=== PATIENT | male | born 1970 | race Caucasian/White ===

== ENCOUNTER → 2016-11-30 | Outpatient (CLI) | payer BC ==
[~2016-11-30] MED LIST: PRLSRUNK
--- NOTE | 2016-11-30 11:40 | DIAGNOSTIC IMAGING REPORT ---
CHEST 2 VIEWS ROUTINE CLINICAL HISTORY: Cough. Chest tightness. COMPARISON STUDY: Chest radiograph January 16, 2008. FINDINGS: Lung volumes are normal. There is no consolidation to suggest pneumonia. Cardiac size is normal. Mediastinal contours are normal. Pulmonary vascularity is normal. There is no pneumothorax or pleural effusion. IMPRESSION: No acute cardiopulmonary findings. Electronically signed by: Ramone Mercedes M.D. 11/30/2016 11:39 AM Dictated Date/Time: 11/30/2016 11:38 AM
== END | disposition home or self-care (01) ==
LOC: C.RAD 10:59
DX: R05 Cough (principal)

== ENCOUNTER → 2017-08-22 | Outpatient (CLI) | payer BC ==
[2017-08-22 16:55] LABS: BASO % 0.4 %; BASO ABS # 0.03 K/uL (0-0.2); EOS % 4.2 %; EOS ABS # 0.33 K/uL (0-0.5); HEMATOCRIT 43.2 % (42-52); IG# 0.06 K/uL (0.00-0.02); LYMPH % 38.8 %; LYMPH ABS # 3.08 K/uL (1.2-3.4); MEAN CELL VOLUME 86.6 fL (80-100); MEAN CORPUSCULAR HEMOGLOBIN 30.1 pg (25-34); MEAN CORPUSCULAR HGB CONC 34.7 g/dl (32-36); MEAN PLATELET VOLUME 9.6 fL (7.4-10.4); MONO % 6.8 %; MONO ABS # 0.54 K/uL (0.11-0.59); PLATELET COUNT 193 K/uL (130-400); RED CELL DISTRIBUTION WIDTH CV 12.9 % (11.5-14.5); WHITE BLOOD COUNT 7.94 K/uL (4.8-10.8)
[2017-08-22 17:19] LABS: ALT/SGPT 32 U/L (12-78); AST/SGOT 21 U/L (15-37); BLOOD UREA NITROGEN 20 mg/dl (7-18); CALCIUM 8.8 mg/dl (8.5-10.1); CARBON DIOXIDE 27 mmol/L (21-32); CREATININE 1.14 mg/dl (0.60-1.40); GLUCOSE 115 mg/dl (70-99); POTASSIUM 3.8 mmol/L (3.5-5.1); SODIUM 136 mmol/L (136-145)
[2017-08-22 17:30] LABS: ALKALINE PHOSPHATASE 77 U/L (45-117); TOTAL PROTEIN 7.9 gm/dl (6.4-8.2)
[2017-08-24 14:32] LABS: ANA SCREEN TC 249X NEGATIVE (NEGATIVE)
== END | disposition home or self-care (01) ==
LOC: C.LAB1850 16:02
DX: R42 Dizziness and giddiness (principal)

== ENCOUNTER → 2017-11-15 | Outpatient (CLI) | payer BC ==
[2017-11-15 09:34] LABS: HEMATOCRIT 45.3 % (42-52); MEAN CELL VOLUME 85.8 fL (80-100); MEAN CORPUSCULAR HEMOGLOBIN 30.3 pg (25-34); MEAN CORPUSCULAR HGB CONC 35.3 g/dl (32-36); MEAN PLATELET VOLUME 9.2 fL (7.4-10.4); PLATELET COUNT 219 K/uL (130-400); RED CELL DISTRIBUTION WIDTH CV 12.8 % (11.5-14.5); RED CELL DISTRIBUTION WIDTH SD 40.1 fL (36.4-46.3); WHITE BLOOD COUNT 7.71 K/uL (4.8-10.8)
[2017-11-15 10:04] LABS: BLOOD UREA NITROGEN 14 mg/dl (7-18); CALCIUM 8.9 mg/dl (8.5-10.1); CARBON DIOXIDE 29 mmol/L (21-32); CHOLESTEROL 141 mg/dl (0-200); CREATININE 1.03 mg/dl (0.60-1.40); GLUCOSE 94 mg/dl (70-99); POTASSIUM 3.8 mmol/L (3.5-5.1); SODIUM 139 mmol/L (136-145)
[2017-11-15 10:14] LABS: LDL CHOLESTEROL CALCULATED 63 mg/dl
== END | disposition home or self-care (01) ==
LOC: C.LAB1850 07:07
DX: Z13.220 Encounter for screening for lipoid disorders (principal); I10 Essential (primary) hypertension

== ENCOUNTER 2024-09-27 08:41 | Inpatient (IN) ==
--- NOTE | 2024-09-17 10:35 | Anesthesiology Consultation ---
Date of Service September 17, 2024 Assessment & Plan (1) Encounter for pre-operative examination: Infectious disease screening: Per assessment on 09/17/24- No known recent infectious disease contacts or current infectious disease symptoms. Chart Review Chart Review: Acceptable Risk for Surgery and Patient NOT seen in Pre Admission Testing History Surgery Operation Date: 09/27/24 07:15 Proposed Procedures p Laparoscopic Partial Small Bowel Resection - Sebas Mobley, DO Height/Weight Height: 6 ft Weight: 103.873 kg Allergies Allergy/AdvReac Type Severity Reaction Status Date / Time eggs AdvReac esophageal Uncoded 09/17/24 10:10 spasms Medications Home Medications Medication Instructions Recorded Confirmed Last Taken famotidine 40 mg tablet 40 mg PO QAM 11/30/23 09/17/24 Unknown metoprolol succinate 25 mg 25 mg PO QAM 11/30/23 09/17/24 Unknown tablet,extended release 24 hr tamsulosin 0.4 mg capsule 0.4 mg PO QAM 09/17/24 09/17/24 Unknown Past Medical History Medical History Hx of gastroesophageal reflux (GERD) Hx of renal calculi no sx Hypertension Mesenteric mass Obesity (BMI 30-39.9) Past Family History Family History Grandfather (Maternal) Myocardial infarction Heart disease Grandmother (Maternal) Diabetes Past Surgical History Surgical History H/O wisdom tooth extraction Hx of colonoscopy Hx of sinus surgery stitches in sinus on left side, as a teen S/P knee surgery R/L, both arthroscopic Social History Smoking Status: Never smoker Do You Dip or Chew Tobacco: No Hx Alcohol Use: Yes Alcohol type: beer alcohol intake frequency: holidays/special occasions only Hx Substance Use: No substance use type: does not use Lab Results Anesthesia Preop Results Results Anesthesia Widget: WBC 6.92 K/ul (4.8-10.8) 08/22/24 Hgb 14.8 g/dl (14.0-18.0) 08/22/24 Hct 43.8 % (42.0-52.0) 08/22/24 Plt 215 K/uL (130-400) 08/22/24 Na 138 mmol/L (136-145) 08/22/24 K 4.3 mmol/L (3.5-5.1) 08/22/24 Cl 106 mmol/L (98-107) 08/22/24 CO2 26 mmol/L (21-32) 08/22/24 BUN 19 mg/dl (6-23) 08/22/24 Creat 1.11 mg/dl (0.6-1.4) 08/22/24 Glucose Level 105 mg/dl (70-99(Fasting)) H 08/22/24 Testing Electrocardiogram Date: 08/22/24 Findings: + NSR @ (63) Other Testing PET Skill-mid thigh Date: 09/06/24 FINDINGS: There is physiologic uptake. Head and neck: No enlarged adenopathy or abnormal uptake seen. Chest: There is no pulmonary consolidation or pleural effusion. No significant pulmonary nodule. No enlarged or hypermetabolic adenopathy. Abdomen and Pelvis: The 1.8 cm anterior mesenteric mass near the midline series 4 image 179 demonstrates maximum SUV of 3.2, similar to adjacent bowel. No other abnormal uptake seen. Liver, gallbladder, spleen, pancreas, adrenal glands, and kidneys have an unremarkable non-IV contrasted appearance. No abdominal aortic aneurysm. Urinary bladder is decompressed. Prostate is mildly enlarged. No bowel inflammation or obstruction. No free fluid, free air, or abscess. No enlarged adenopathy. Musculoskeletal: No abnormal uptake seen. IMPRESSION: Small mesenteric mass demonstrates mild uptake, similar to adjacent bowel. This suggests low-grade carcinoid tumor. No other abnormal uptake seen. Continued follow-up is recommended.
--- NOTE | 2024-09-27 07:13 | History & Physical Report ---
Date of Service September 27, 2024 Assessment & Plan (1) Mesenteric mass: Plan Small bowel mesenteric mass. While his urine and blood 5 HIAA were elevated I did review the PET scan with Dr. Mercedes and there does not appear to be any additional areas of involvement. Discussed options as well as risks. Will proceed today with a laparoscopic partial small bowel resection. History of Present Illness Primary Care Provider: Chica Gallo is here for a laparoscopic partial small bowel resection for a small bowel mesenteric mass. 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 There has been no major changes to his health history since I seen him last in the office. Allergies Allergy/AdvReac Type Severity Reaction Status Date / Time egg AdvReac ESOPHAGEAL Verified 09/27/24 09:18 SPASMS Home Medications Medication Instructions Recorded Confirmed Type famotidine 40 mg tablet 40 mg PO QAM 11/30/23 09/27/24 History metoprolol succinate 25 mg 25 mg PO QAM 11/30/23 09/27/24 History tablet,extended release 24 hr tamsulosin 0.4 mg capsule 0.4 mg PO QAM 09/17/24 09/27/24 History Past Med/Surg History Problem List (Updated 09/27/24 @ 11:00 by Sebas Mobley, ) Mesenteric mass Encounter for pre-operative examination Medical History Hx of gastroesophageal reflux (GERD) Hx of renal calculi no sx Hypertension Mesenteric mass Obesity (BMI 30-39.9) Surgical History H/O wisdom tooth extraction Hx of colonoscopy Hx of sinus surgery stitches in sinus on left side, as a teen S/P knee surgery R/L, both arthroscopic Family History Grandfather (Maternal) Myocardial infarction Heart disease Grandmother (Maternal) Diabetes Social History Smoking Status: Never smoker Second Hand Exposure: Yes (hx growing up); Do You Dip or Chew Tobacco: No; Tobacco Cessation Education Requested by Patient: No Hx Alcohol Use: Yes Alcohol type: beer Alcohol Intake Frequency: 2-4 x/Month Hx Substance Use: No Preferred Language: Welsh Communication Ability: Effective Tile Fitter Required: No Beliefs That Will Affect Care: None marital status: Current Living Situation: Spouse current occupational status: employed Other Information That Helps Us Care for You: No Feels Safe at Home: Yes Safety Concerns: Feels Safe At This Time Diet: regular during the past year weight has: increased > 10 lbs Assistive Devices: None Review of Systems All systems reviewed & are unremarkable except as noted in HPI & below Physical Exam Constitutional: WD/WN, vitals as above no acute distress and not ill appearing Eyes: PERRL, conjunctivae normal, anicteric sclerae EOM intact bilaterally ENMT: external ear and nose normal, oropharynx normal Ears: no hearing impairment Neck: trachea midline, no thyromegaly Respiratory: normal respiratory effort; no respiratory distress and does not use accessory muscles Cardiovascular: Rate/Rhythm: regular rate and regular rhythm Gastrointestinal (Abdomen): normal bowel sounds, soft, nontender, no hepatosplenomegaly Skin: no rashes, warm and dry Psychiatric: Orientation: alert, oriented x 3 and cooperative
[2024-09-27] MEDS: LR 15ML/HR IV SCH (09:45)
[2024-09-27] MEDS ORDERED: ONDANSETRON INJ 2 MG/ML 2 ML VIAL ONE (09:49)
[2024-09-27] MEDS ORDERED: fentaNYL citrate PF 100 MCG/2 ML VIAL ONE (09:49)
[2024-09-27] MEDS ORDERED: ROCURONIUM BROMIDE 10 MG/ML 5 ML VIAL IV ONE ×2 (09:49→12:36)
[2024-09-27] MEDS ORDERED: GLYCOPYRROLATE 0.2 MG/ML VIAL ONE ×4 (09:49→13:15)
[2024-09-27] MEDS ORDERED: LIDOCAINE 2% 2 ML VIAL/AMP(20MG/ML) INFIL ONE ×2 (09:49)
[2024-09-27] MEDS ORDERED: DEXAMETHASONE SOD INJ 4 MG/ML VIAL ONE (09:49)
[2024-09-27] MEDS ORDERED: PROPOFOL IV EMULSION 10 MG/ML 20 ML VIAL IV ONE (09:49)
[2024-09-27] MEDS ORDERED: MIDAZOLAM HCL 1 MG/ML 2ML VIAL ONE (09:49)
[2024-09-27] MEDS: ceFAZolin 2000MG 2,000 MG/15 ML SYR IV SCH ×2 (11:57→19:27)
[2024-09-27] MEDS ORDERED: ePHEDrine sulfate 50 MG/5 ML SYR ONE (12:27)
[2024-09-27] MEDS ORDERED: HYDROmorphone INJ 2 MG/ML SYR/VIAL ONE (12:45)
[2024-09-27] MEDS ORDERED: KETOROLAC 30 MG/ML VIAL ONE (12:50)
[2024-09-27] MEDS ORDERED: NEOSTIGMINE METHYLSULFATE 1 MG/ML 10ML VIAL ONE (13:15)
[2024-09-27] MEDS: BUPIVACAINE/EPINEPHRINE 0.5% MPF 1:200,000 30 ML VIAL ONE (13:40)
--- NOTE | 2024-09-27 14:03 | Operative Report ---
PG Post Operative Report Pre & Post Diagnosis Operation Date: 09/27/24 10:35 Pre-Op Diagnosis: Mesentric Mass Post-Op Diagnosis: Mesentric Mass I identified the patient and participated in the time-out.: Yes Procedure Operation Date: 09/27/24 10:35 Actual Procedures p Laparoscopic converted to open Partial Small Bowel Resection(Not Applicable) - Sebas Mobley DO Surgeon Sebas Mobley DO Legal Office Administrator tulio Huggins Estimated Blood Loss 20 Findings Consistent with Post-Op Diagnosis Specimens 1. portion of small bowel and mesentery 2. additional proximal small bowel and mesentery 3. additional distal small bowel and mesentery Description of Procedure Informed consent was obtained the patient was taken to the operating room and placed in supine position. After successful intubation the abdomen was shaved and sterilely prepped and draped in usual fashion. I began with a supraumbilical incision with 11 blade scalpel. This was carried down through the soft tissue using cautery. The anterior fascia was opened using cautery and two #0 Vicryl stay sutures were placed. Peritoneum was entered using blunt finger penetration and a finger sweep was performed to take down any underlying adhesions. A 12 mm Ulloa trocar was placed and the abdomen was insufflated to 18 mmHg. Laparoscope was inserted and the abdomen was examined 360 degrees. All the peritoneal surfaces were normal including liver. There was no evidence of any omental abnormalities. Next I placed a left upper quadrant 5 mm trocar and a left mid abdominal 5 mm trocar. I began by identifying the ligament of Treitz. I ran the small bowel distally and at about the midpoint of the small bowel I encountered a firm area of contracted mesentery. This was clearly the abnormality seen on imaging. I did continue to run the small bowel distally to the ileocecal valve and there were no other abnormal areas. At this point I grasped the bowel with a clamp and we removed the trocars. I extended the umbilical incision superiorly as well as for several centimeters inferiorly. We opened the fascia. I was able to deliver the small bowel and mesentery and exteriorized it. Several inches distal to the mass I transected the small bowel using a DMITRY brown cartridge linear stapler. In similar fashion I transected the small bowel proximal. We then used a LigaSure device to come down the mesentery. I stayed as low as possible since the mass itself was in the mesentery. I transected the mesentery low at its base. We then sent the small bowel and mesentery to the pathology lab. Once I did this the stapled ends of both the proximal and small bowel were slightly dusky. I decided that it would be helpful to incorporate some additional mesentery as well so I used DMITRY brown cartridge staplers to transect an extra couple centimeters of the proximal as well as distal small bowel using a LigaSure to take the mesentery and included them as additional proximal small bowel mesentery and an additional distal small bowel and mesentery. Next we performed a [id number] small bowel anastomosis. Enterotomies were made and a DMITRY August cartridge linear stapler 60 mm was used to create a [id number] anastomosis. I closed the common enterotomy using 3-0 Monocryl in running fashion for serosal/mucosal layers followed by 3-0 silk in Lembert fashion at the suture line with individual silk sutures. Next we changed our gloves. 3-0 silk was used to place a crotch stitch. 2-0 Vicryl was used to close the mesenteric defect. The anastomosis was widely patent with no evidence of any ischemia. This was reduced back into the abdomen. We did run the small bowel manually 1 additional time and again no other abnormalities were seen. The fascia was closed using #1 looped PDS in running fashion. Soft tissue was irrigated. Skin was closed over quarter inch Ashley with skin lindsay. Silver dressing was used to cover the incisions followed by gauze and tape. The patient was awakened extubated and transferred to recovery in stable condition. My physician human resources assistant manager was present through the entire case was instrumental in assisting with running the camera, assisting with this bowel resection anastomosis wound closure and dressing placement. I attest to the content of the Intraoperative Record and any orders documented therein. Any exceptions are noted below.
[2024-09-27] MEDS: HYDROmorphone INJ 1 MG/ML SYRINGE IV PRN (14:05)
[2024-09-27] MEDS ORDERED: ATROPINE SULFATE 0.1 MG/ML 10ML SYR IV PRN (14:08)
[2024-09-27] MEDS ORDERED: ePHEDrine sulfate 50 MG/ML AMP IV PRN (14:08)
[2024-09-27] MEDS ORDERED: fentaNYL citrate PF 100 MCG/2 ML VIAL IV PRN (14:08)
[2024-09-27] MEDS ORDERED: FLUMAZENIL 0.1 MG/1 ML 10 ML VIAL IV PRN (14:08)
[2024-09-27] MEDS ORDERED: NALOXONE HCL 0.4 MG/1 ML VIAL/CARP IV PRN (14:08)
[2024-09-27] MEDS ORDERED: PROMETHAZINE HCL 6.25 MG in SODIUM CHLORIDE 0.9% 50 ML IV PRN (14:08)
[2024-09-27] MEDS: ONDANSETRON INJ 2 MG/ML 2 ML VIAL IV PRN (14:30)
--- NOTE | 2024-09-27 14:48 | Anesthesiology Progress Note ---
Date of Service September 27, 2024 Anesthesia Post Procedure Vital Signs Vital Signs: Temp Pulse Resp BP BP Pulse Ox O2 Del Method 09/27/24 14:35 58 L 15 128/86 96 Nasal Cannula 09/27/24 14:25 36.4 C L 58 L 15 113/72 95 Nasal Cannula 09/27/24 14:15 59 L 15 128/74 98 Oxymask 09/27/24 14:05 58 L 15 126/69 99 Oxymask 09/27/24 13:55 36.2 C L 70 18 133/75 98 Oxymask 09/27/24 09:19 37.1 C 75 18 158/91 H 99 Room Air O2 Flow Rate 09/27/24 14:35 2 09/27/24 14:25 2 09/27/24 14:15 5 09/27/24 14:05 5 09/27/24 13:55 5 09/27/24 09:19 Transfer of Care Handoff Completed per policy Notes Mental Status: alert / awake / arousable Patient Amnestic to Procedure: Yes Nausea / Vomiting: adequately controlled Pain: adequately controlled Airway Patency, RR, SpO2: stable & adequate BP & HR: stable & adequate Hydration State: stable & adequate Anesthetic Complications: no major complications apparent
[2024-09-27] MEDS ORDERED: MoRPHine SULFATE 2 MG/ML CARP IV PRN (15:05)
[2024-09-27] MEDS ORDERED: oxyCODONE HCL IR 5 MG TAB (IMMEDIATE RELEASE) PO PRN ×2 (15:05)
[2024-09-27] MEDS ORDERED: ONDANSETRON INJ 2 MG/ML 2 ML VIAL IV PRN (15:05)
[2024-09-27] MEDS ORDERED: MoRPHine SULFATE 4 MG/ML 1 ML CARP\\VIAL IV PRN (15:05)
[2024-09-27] MEDS: HYDROmorphone INJ 1 MG/ML SYRINGE ONE (15:08)
[2024-09-27] MEDS: LACTATED RINGER'S 1,000 ML IV SCH (15:20)
[2024-09-28 06:12] LABS: Basophils # (auto) 0.01 K/uL (0.00-0.20); Basophils % (auto) 0.1 %; Eosinophils # (auto) 0.01 K/uL (0.00-0.50); Eosinophils % (auto) 0.1 %; Hematocrit (blood only) 39.3 % (42.0-52.0); Hemoglobin 13.3 g/dl (14.0-18.0); Immature Granulocytes # (auto) 0.08 K/uL (0.01-0.20); Immature Granulocytes % (auto) 0.6 %; Lymphocytes % (auto) 10.8 %; Mean Corpuscular Hemoglobin 29.8 pg (25.0-34.0); Mean Corpuscular Hgb Conc 33.8 g/dL (32.0-36.0); Mean Corpuscular Volume 87.9 fL (80.0-100.0); Mean Platelet Volume 9.3 fL (9.4-12.4); Monocytes # (auto) 1.07 K/uL (0.11-0.59); Monocytes % (auto) 7.7 %; Neutrophils # (auto) 11.17 K/uL (1.40-6.50); Neutrophils % (auto) 80.7 %; Platelet Count 214 K/uL (130-400); RDW Coefficient of Variation 12.8 % (11.5-14.5); Red Blood Count 4.47 M/uL (4.70-6.10); White Blood Count 13.84 K/ul (4.8-10.8)
[2024-09-28 06:25] LABS: BUN Creatinine Ratio 13.2 (10-20); Calcium 8.8 mg/dl (8.6-10.3); Creatinine Clr Calc Pharmacy 114.7 ml/min; Potassium 3.9 mmol/L (3.5-5.1)
[2024-09-28] MEDS: ACETAMINOPHEN 325 MG TAB PO PRN (07:38)
--- NOTE | 2024-09-28 08:39 | Surgery Progress Note ---
Date of Service September 28, 2024 Assessment & Plan (1) Mesenteric mass: Plan: Patient with a history of mesenteric mass who is now POD#1 s/p laparoscopic converted to open Partial Small Bowel Resection with Dr. Mobley -Will keep on clears for now, if patient continues to do well this morning will advance to fulls later today. -Continue to monitor bowel function, patient is passing small amount of gas however no BM. -Continue 24 hour post-op antibiotics, patient does have slight WBC elevation today however he has been afebrile. WBC could be secondary to recent surgery. Will continue to trend daily labs. -Patient already has been up ambulating post-op, encourage OOB throughout the day -Pain control as needed -Will keep surgical dressing in place today, will change dressing tomorrow AM. Admission and Anticipated Discharge Date Admission Date: September 27, 2024 Subjective Patient doing well this morning, no acute complaints at this time Tolerating clears without any issues of nausea or vomiting Passing some gas, however no BM Pain well controlled and patient has been up ambulating last evening and this morning WBC slightly elevated today however patient has remained afebrile. On 24 hour post-op abx. Physical Exam Constitutional: WD/WN, vitals as above Respiratory: normal respiratory effort, lungs clear to auscultation Cardiovascular: RRR, no murmur, no edema Gastrointestinal (Abdomen): Abdomen soft, nondistended, +appropriate TTP over surgical sites. +surgical sites with dressing in place, c/d/i without any overlying signs of infection. Skin: no rashes, warm and dry Psychiatric: A+Ox3, euthymic affect Results & Data Vital Signs (Past 12 Hours) Vital Signs Temp Pulse Pulse Resp BP BP Pulse Ox 09/28/24 08:00 36.6 C 72 18 146/76 H 96 09/28/24 07:10 36.7 C 67 17 151/82 H 94 09/28/24 03:57 36.9 C 57 L 18 127/74 97 09/27/24 23:38 36.9 C 63 18 120/74 94 O2 Del Method 09/28/24 08:00 Room Air 09/28/24 07:10 Room Air 09/28/24 03:57 Room Air 09/27/24 23:38 Room Air PG Care Time/CCT Total # of Minutes Spent Total Time Spent with Patient: Total time spent is greater than 50% in coordination of care (as documented) at patient's floor/unit and/or counseling patient: C[place] [address] Post Operative Follow-Up Patient Type Established History Problem Focused Exam Problem Focused Medical Decision Making Straight Forward Diagnoses Mesenteric mass K63.89
[2024-09-28] MEDS: FAMOTIDINE 40 MG TABLET PO SCH (09:00)
[2024-09-28] MEDS: TAMSULOSIN HCL 0.4 MG CAP PO SCH (09:00)
[2024-09-28] MEDS: METOPROLOL SUCC 25MG EXT REL TAB PO SCH (09:00)
--- NOTE | 2024-09-29 04:38 | Surgery Progress Note ---
Date of Service September 29, 2024 Assessment & Plan (1) Mesenteric mass: Plan: Patient is status post partial small bowel resection on 09/27/2024 (postop day #2) Surgical path is pending Continue analgesics as needed As patient has not had return of bowel function we will keep on current diet which is full liquids for the present time. Consideration be given to advancing diet once he has improved bowel function Continue mobilization Check a.m. labs when available If patient remains hospitalized today, consider adding subcutaneous heparin for DVT prophylaxis Admission and Anticipated Discharge Date Admission Date: September 27, 2024 Supervising Physician Co-Signing Physician Notes Patient seen and examined, labs reviewed, agree with above. POD #2 laparoscopic converted to open small bowel resection for mesenteric mass with primary anastomosis. He is tolerating full liquids, though he does have some belching. He has not passed flatus or pass gas but does not have any significant discomfort or feel distended. Some mild pain around incision site. Abdomen soft, probably tender to palpation. Dressing in place without strikethrough. Torsten without infection. Horatio present. Labs unremarkable. Will continue on full liquid diet until more meaningful return of bowel function. Once he starts passing gas and having a bowel movement, we will advance to a low fiber diet and he will be able to be discharged to home. Subjective Patient is resting comfortably in bed. He notes that his abdominal pain from surgery is well-controlled. He did report some bloating yesterday but this has improved. He has not had any return of bowel function since his surgery but he does not have any nausea or vomiting and is tolerating full liquids. He is urinating without difficulty and has been ambulating in the hallways Physical Exam Gastrointestinal (Abdomen): Abdomen is soft with minimal distention. Incision is clean, dry, intact with Ashley drain in place. There is minimal pain with palpation Results & Data Vital Signs (Past 12 Hours) Vital Signs Temp Pulse Resp BP BP Pulse Ox O2 Del Method 09/28/24 23:55 37 C 56 L 14 156/92 H 98 Room Air 09/28/24 22:07 36.9 C 155/92 H 09/28/24 20:15 173/100 H 09/28/24 20:14 37.3 C 60 12 166/95 H 98 Room Air PG Care Time/CCT Total # of Minutes Spent Total Time Spent with Patient: Total time spent is greater than 50% in coordination of care (as documented) at patient's floor/unit and/or counseling patient: Coding Level of Care Code 09022 Post Operative Follow-Up Diagnoses Mesenteric mass K63.89
[2024-09-29 06:29] LABS: Basophils # (auto) 0.04 K/uL (0.00-0.20); Basophils % (auto) 0.4 %; Eosinophils # (auto) 0.11 K/uL (0.00-0.50); Eosinophils % (auto) 1.2 %; Hemoglobin 13.1 g/dl (14.0-18.0); Immature Granulocytes # (auto) 0.04 K/uL (0.01-0.20); Immature Granulocytes % (auto) 0.4 %; Lymphocytes # (auto) 2.37 K/uL (1.20-3.40); Lymphocytes % (auto) 25.1 %; Mean Corpuscular Hemoglobin 30.2 pg (25.0-34.0); Mean Corpuscular Hgb Conc 34.5 g/dL (32.0-36.0); Mean Corpuscular Volume 87.6 fL (80.0-100.0); Mean Platelet Volume 9.4 fL (9.4-12.4); Monocytes # (auto) 0.88 K/uL (0.11-0.59); Monocytes % (auto) 9.3 %; Neutrophils # (auto) 6.01 K/uL (1.40-6.50); Neutrophils % (auto) 63.6 %; Platelet Count 200 K/uL (130-400); RDW Coefficient of Variation 12.9 % (11.5-14.5); RDW Standard Deviation 41.3 fL (36.4-46.3); Red Blood Count 4.34 M/uL (4.70-6.10); White Blood Count 9.45 K/ul (4.8-10.8)
[2024-09-29 07:45] LABS: BUN Creatinine Ratio 10.1 (10-20); Calcium 8.6 mg/dl (8.6-10.3); Creatinine Clr Calc Pharmacy 104.2 ml/min
[2024-09-30 06:26] LABS: Basophils # (auto) 0.06 K/uL (0.00-0.20); Basophils % (auto) 0.7 %; Eosinophils # (auto) 0.19 K/uL (0.00-0.50); Eosinophils % (auto) 2.3 %; Hematocrit (blood only) 39.3 % (42.0-52.0); Hemoglobin 13.4 g/dl (14.0-18.0); Immature Granulocytes # (auto) 0.04 K/uL (0.01-0.20); Immature Granulocytes % (auto) 0.5 %; Lymphocytes # (auto) 2.34 K/uL (1.20-3.40); Lymphocytes % (auto) 27.8 %; Mean Corpuscular Hemoglobin 29.6 pg (25.0-34.0); Mean Corpuscular Hgb Conc 34.1 g/dL (32.0-36.0); Mean Corpuscular Volume 86.8 fL (80.0-100.0); Monocytes # (auto) 0.86 K/uL (0.11-0.59); Monocytes % (auto) 10.2 %; Neutrophils # (auto) 4.93 K/uL (1.40-6.50); Neutrophils % (auto) 58.5 %; Platelet Count 202 K/uL (130-400); RDW Coefficient of Variation 12.7 % (11.5-14.5); RDW Standard Deviation 40.6 fL (36.4-46.3); Red Blood Count 4.53 M/uL (4.70-6.10); White Blood Count 8.42 K/ul (4.8-10.8)
[2024-09-30 06:44] LABS: BUN Creatinine Ratio 7.9 (10-20); Calcium 8.9 mg/dl (8.6-10.3); Creatinine Clr Calc Pharmacy 102.1 ml/min; Potassium 3.9 mmol/L (3.5-5.1)
--- NOTE | 2024-09-30 08:39 | Surgery Progress Note ---
Date of Service September 30, 2024 Assessment & Plan (1) Hx of resection of small bowel: Plan: POD #3 bowel resection with anastomosis for mesenteric mass. Did pass some flatus Continue full liquids, will advance to low fiber if he has a more meaningful return of bowel function Discharge once tolerating a low fiber diet Admission and Anticipated Discharge Date Admission Date: September 27, 2024 Subjective POD #3 small bowel resection with anastomosis for mesenteric mass. Did pass some flatus overnight, but still feels a little bloated. Physical Exam Constitutional: WD/WN, vitals as above Gastrointestinal (Abdomen): normal bowel sounds, soft, nontender, no hepatosplenomegaly Inspection/Auscultation: + abdomen distended (Mild) and + abdominal surgical incision (No infection, Ashley in place) Results & Data Vital Signs (Past 12 Hours) Vital Signs Temp Pulse Resp BP Pulse Ox O2 Del Method 09/30/24 08:21 37.2 C 92 H 16 152/101 H 95 Room Air Laboratory Results Laboratory Results - last 24 hr 09/30/24 06:01 WBC 8.42 RBC 4.53 L Hgb 13.4 L Hct 39.3 L MCV 86.8 MCH 29.6 MCHC 34.1 RDW Std Deviation 40.6 RDW Coeff of Sammy 12.7 Plt Count 202 MPV 9.0 L Immature Gran % (Auto) 0.5 Neut % (Auto) 58.5 Lymph % (Auto) 27.8 Garza % (Auto) 10.2 Eos % (Auto) 2.3 Baso % (Auto) 0.7 Neut # (Auto) 4.93 Lymph # (Auto) 2.34 Garza # (Auto) 0.86 H Eos # (Auto) 0.19 Baso # (Auto) 0.06 Immature Gran # (Auto) 0.04 Sodium 141 Potassium 3.9 Chloride 105 Carbon Dioxide 31 Anion Gap 5 BUN 8 Creatinine 1.01 Est Cr Clr Drug Dosing 102.1 eGFR 87.28 BUN/Creatinine Ratio 7.9 L Glucose 107 H Calcium 8.9 PG Care Time/CCT Total # of Minutes Spent Total Time Spent with Patient: Total time spent is greater than 50% in coordination of care (as documented) at patient's floor/unit and/or counseling patient: Coding Level of Care Code 51771 Post Operative Follow-Up Diagnoses Hx of resection of small bowel Z90.49
[2024-10-01 06:13] LABS: Basophils # (auto) 0.05 K/uL (0.00-0.20); Basophils % (auto) 0.5 %; Eosinophils # (auto) 0.19 K/uL (0.00-0.50); Eosinophils % (auto) 2.1 %; Hematocrit (blood only) 40.3 % (42.0-52.0); Hemoglobin 13.7 g/dl (14.0-18.0); Immature Granulocytes # (auto) 0.05 K/uL (0.01-0.20); Immature Granulocytes % (auto) 0.5 %; Lymphocytes % (auto) 24.9 %; Mean Corpuscular Hemoglobin 29.1 pg (25.0-34.0); Mean Corpuscular Volume 85.6 fL (80.0-100.0); Mean Platelet Volume 9.3 fL (9.4-12.4); Monocytes # (auto) 0.79 K/uL (0.11-0.59); Monocytes % (auto) 8.6 %; Neutrophils # (auto) 5.84 K/uL (1.40-6.50); Neutrophils % (auto) 63.4 %; Platelet Count 217 K/uL (130-400); RDW Coefficient of Variation 12.5 % (11.5-14.5); RDW Standard Deviation 38.5 fL (36.4-46.3); Red Blood Count 4.71 M/uL (4.70-6.10); White Blood Count 9.22 K/ul (4.8-10.8)
[2024-10-01 07:54] VITALS: RESP 16; O2SAT 95
--- NOTE | 2024-10-01 10:54 | Surgery Progress Note ---
Date of Service October 01, 2024 Assessment & Plan (1) Hx of resection of small bowel: Plan: POD 4 small bowel resection VSS with hypertension 144/92 on home metoprolol dose, pt asymptomatic, discussed op fu with PCP WBC 9.2 +BMs + flatus no n/v on fulls will advance to low fiber tari drain removed, lindsay CDI , no s/s infection noted drsg changed if tolerates low fiber lunch may be d/c home this evening f/u op in office with Dr Mobley 1-2 weeks continue low fiber diet all questions answered. Admission and Anticipated Discharge Date Admission Date: September 27, 2024 Supervising Physician Co-Signing Physician Notes Patient seen and examined, labs reviewed, agree with above. Status post small b owel resection with anastomosis for mesenteric mass by Dr. Mobley last week. He had multiple bowel movements over the past 24 hours and is passing flatus. He feels much better, occasional gas pain. On exam he is afebrile stable vitals, his abdomen is soft, lindsay in place, no infection, [place] removed. WBC normal. DC to home if tolerates lunch, follow-up with Dr. Mobley for staple removal and pathology results in the next week or 2. Wound care instructions, activity restriction, return precautions given. Subjective +flatus +bm denies fever/chills , cp , sob Review of Systems Constitutional: no fever and no chills Eyes: no diplopia Respiratory: no dyspnea Cardiovascular: no chest pain Gastrointestinal: + abdominal pain; no nausea and no vomit ing Genitourinary: no dysuria Psychiatric: no confusion Physical Exam Constitutional: cooperative and comfortable; no acute distress Respiratory: normal respiratory effort; no respiratory distress Cardiovascular: Rate/Rhythm: regular rate Gastrointestinal (Abdomen): Inspection/Auscultation: + abdominal surgical incision and + abdominal surgical drain present; abdomen not distended Percussion/Palpation: abdomen soft Psychiatric: A+Ox3, euthymic affect Results & Data Vital Signs (Past 12 Hours) Vital Signs Temp Pulse Resp BP Pulse Ox O2 Del Method 10/01/24 07:35 99.1 F 63 16 144/92 H 95 Room Air Results CBC w Diff Results: RBC 4.71 M/uL (4.70-6.10) 10/01/24 WBC 9.22 K/ul (4.8-10.8) 10/01/24 Hgb 13.7 g/dl (14.0-18.0) L 10/01/24 Hct 40.3 % (42.0-52.0) L 10/01/24 MCV 85.6 fL (80.0-100.0) 10/01/24 MCH 29.1 pg (25.0-34.0) 10/01/24 MCHC 34.0 g/dL (32.0-36.0) 10/01/24 RDW Standard Deviation 38.5 fL (36.4-46.3) 10/01/24 RDW Coefficient of Variation 12.5 % (11.5-14.5) 10/01/24 Plt Count 217 K/uL (130-400) 10/01/24 MPV 9.3 fL (9.4-12.4) L 10/01/24 Neutrophils (%) (Auto) 63.4 % 10/01/24 Lymphocytes (%) (Auto) 24.9 % 10/01/24 Monocytes # (Auto) 0.79 K/uL (0.11-0.59) H 10/01/24 Eosinophils # (Auto) 0.19 K/uL (0.00-0.50) 10/01/24 Immature Granulocyte % (Auto) 0.5 % 10/01/24 Neutrophils # (Auto) 5.84 K/uL (1.40-6.50) 10/01/24 Lymphocytes # (Auto) 2.30 K/uL (1.20-3.40) 10/01/24 Monocytes # (Auto) 0.79 K/uL (0.11-0.59) H 10/01/24 Eosinophils # (Auto) 0.19 K/uL (0.00-0.50) 10/01/24 Basophils # (Auto) 0.05 K/uL (0.00-0.20) 10/01/24 Immature Granulocyte # (Auto) 0.05 K/uL (0.01-0.20) 5 PG Care Time/CCT Total # of Minutes Spent Total Time Spent with Patient: Total time spent is greater than 50% in coordination of care (as documented) at patient's floor/unit and/or counseling patient: Coding Level of Care Code 30249 Post Operative Follow-Up Diagnoses Hx of resection of small bowel Z90.49
[2024-10-01 11:48] VITALS: BP 150/94; PULSE 68; TEMP 99
--- NOTE | 2024-10-03 08:26 | Coding Query ---
PATHOLOGY To promote full compliance with coding requirements relating to patient care, physician participation is requested in all cases of betting agency manager uncertainty. Please assist us with the question(s) below: Please review the Pathology report and please document any relevant diagnosis(es) below: Diagnosis(es): small bowel desmoid fibromatosis Thank you MASOUD Fraser [facility]
--- NOTE | 2024-10-03 19:17 | Discharge Summary ---
Date of Service October 01, 2024 Admission HPI Per Admitting Provider Sabino is here for a laparoscopic partial small bowel resection for a small bowel mesenteric mass. 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 There has been no major changes to his health history since I seen him last in the office. Principal Diagnosis Mesenteric mass Discharge Exam Constitutional: cooperative and comfortable; no acute distress Respiratory: normal respiratory effort; no respiratory distress Cardiovascular: Rate/Rhythm: regular rate Gastrointestinal (Abdomen): Inspection/Auscultation: + abdominal surgical incision and + abdominal surgical drain present; abdomen not distended Percussion/Palpation: abdomen soft Psychiatric: A+Ox3, euthymic affect Discharge Data Allergies Allergy/AdvReac Type Severity Reaction Status Date / Time egg AdvReac ESOPHAGEAL Verified 09/27/24 09:18 SPASMS Procedures Performed Operation Date: 09/27/24 10:35 Actual Procedures p open Partial Small Bowel Resection(Not Applicable) - Sebas Mobley DO s Laparoscopic converted to open(Not Applicable) - Sebas Mobley DO Hospital Course (1) Mesenteric mass: Patient is a 54-year-old male who underwent laparoscopic, converted to open, partial small bowel resection with Dr. Mobley on 09/27/2024. The patient was admitted under the surgical service post-operatively to medical/surgical floor. Post-operatively, the patient was placed on a clear-liquid diet and he was able to tolerate without any issues. He was gradually advanced to a low-fiber diet once he had full return of bowel function. The patient did receive appropriate 24hour post-op antibiotics and otherwise did not require any additional antibiotic coverage. His pain was well controlled with Extra Strength Tylenol and low-dose Oxycodone. The patient's surgical sites had lindsay and his midline incision also had a [place] drain in place. The Ashley was removed prior to the time of discharge and he had no overlying signs of infection to his surgical sites. He was ultimately found medically stable on day of discharge to return home. The patient was given post-op instructions which included no heavy lifting, skin lindsay to remain in place until his follow up appointment, and he is to remain on a low-fiber diet. The patient will follow up with Dr. Mobley for his post-op check up in approximately 2 weeks time. Total Time Total Time Spent Total Time Spent (In Minutes): 30 minutes Discharge Plan Discharge Items Patient Disposition: Home - Self-Care Reason For Visit: Mesentric Mass Discharge Diagnosis: laparoscopic converted to open partial small bowel resection Activity: Per Instructions section Lifting: No more than 10 pounds Bathing Comment: may shower; no soaking in tubs/pools x 2 weeks Exercise/Sports: Wait until after follow-up appointment Driving/Machine Use: no driving while taking narcotics for pain Non-emergency contact: Surgeon Call non-emergency contact if: you have any medication questions, your symptoms worsen, your pain is not controlled, your pain is worsening, you have a fever, your temperature is above 101.5, your wound has increased redness, your wound has increased drainage and your wound pain has increased Follow-up/Referrals: Sebas Mobley, [Surgeon] - (please call to schedule follow up in the office within 2 weeks) Chica Garcia PA-C [Primary Care Provider] - Diet: Low Fiber Addtl Attending Provider Instructions: SPECIAL CARE INSTRUCTIONS: * You have lindsay in place that will be removed at one of your follow up appointments, around 14 days from surgical date. You may keep a dry dressing ove r the site and change daily and as needed for comfort and/or to collect any drainage. Dress with dry 4x4 gauze/ABD/ and medipore tape daily and as needed. * You may shower 09/28 . NO soaking in pools or baths for 2 weeks * No lifting greater than 10lbs. No strenuous exercise until cleared by surgeon. Light walking is accepted. * No driving while taking narcotic pain medication; wait at least 3 days * No drinking alcohol while taking narcotic pain medication * May use Ibuprofen/Tylenol over the counter for pain as tolerated. Do not exceed 3grams of Tylenol per 24 hours * Do not take plain Tylenol while you are taking the narcotic Percocet for pain. They both contain Acetaminophen and you should not exceed >3grams of Acetaminophen within a 24 hour time period * Expect some swelling and bruising. * Diet- you may resume a low fiber diet Call your doctor if: * Temperature above 101 degrees, nausea/vomiting, fever/chills * Pain not relieved by pain medicine ordered * There is increased drainage or redness from any incision * You have any unanswered questions or concerns [phone]. FOLLOW UP VISIT: If not already scheduled, please call the office for a follow-up visit. Office Pending Studies at Discharge: Yes Studies:: surgical pathology Stand-Alone Forms: [facility] Medications and DC Order Prescriptions: New oxycodone-acetaminophen [Percocet] 5-325 mg tablet 1 - 2 tab PO .q4-6h PRN (Reason: pain, for initial therapy, max 6 tabs per day) Qty: 15 0RF Continued famotidine 40 mg tablet 40 mg PO QAM metoprolol succinate 25 mg tablet extended release 24 hr 25 mg PO QAM tamsulosin 0.4 mg capsule 0.4 mg PO QAM Discharge Orders: Discharge Order (Routine); Ordered 10/01/24 Ordered By: Heather Maria/Other Patient Handouts: Oxycodone/Acetaminophen Oral Tablet, Low-Fiber Diet Admission Data Admit Date/Time: 09/27/24 13:13 Attending Provider: Sebas Mobley Admit Provider: Sebas Mobley Primary Care Provider: Chica Garcia Other Interventions: Discharge Summary Assessment (RN) Last Done: 10/01/24 11:59 [place] [address] INP/OBS DISCH >30 MIN Patient Type Established Diagnoses Mesenteric mass K63.89
== END 2024-10-01 17:01 | disposition home or self-care (01) | DRG 983 ==
LOC: ASU 08:41 → 3E 13:13